=== PATIENT | male | born 1975 ===

== ENCOUNTER 2024-11-23 14:26 | Outpatient (CLI) | payer OTHER | END 2024-11-23 14:36 | disposition home or self-care (01) | LOC: TOM 14:26 | PROVIDERS: ATTEND Internal Medicine | DX: E55.9 Vitamin D deficiency, unspecified (principal); E78.1 Pure hyperglyceridemia; D50.9 Iron deficiency anemia, unspecified; D51.9 Vitamin B12 deficiency anemia, unspecified; R73.01 Impaired fasting glucose; E02 Subclinical iodine-deficiency hypothyroidism; E66.9 Obesity, unspecified; R06.83 Snoring; Z87.891 Personal history of nicotine dependence ==

== ENCOUNTER → 2024-11-24 | Outpatient (CLI) | payer OTHER | END | disposition home or self-care (01) | LOC: SONOGRAMA 08:22 | PROVIDERS: ATTEND Internal Medicine | DX: E55.9 Vitamin D deficiency, unspecified (principal); E78.1 Pure hyperglyceridemia; D50.9 Iron deficiency anemia, unspecified; D51.9 Vitamin B12 deficiency anemia, unspecified; R73.01 Impaired fasting glucose; E02 Subclinical iodine-deficiency hypothyroidism; E66.9 Obesity, unspecified; Z87.891 Personal history of nicotine dependence; R10.10 Upper abdominal pain, unspecified ==